=== PATIENT | female | born 1955 | race Caucasian/White ===

== ENCOUNTER → 2021-06-03 | Outpatient (CLI) | payer MEDICARE, OTHER ==
[~2021-06-03] MED LIST: ATROVENT NASAL SPRAY; BENTYL 20MG TAB20 MG PO; BROVANA15 MCG/2 M PO; BUDESONIDE INH; BUTALB-CAFF-AC1 EACH PO; CLARITIN10 MG PO; CLINDAMYCIN HC300 MG PO; CLONAZEPAM2 MG PO; FERROUS SULFAT325 MG PO; LEXAPRO20 MG PO; NORCO 7.5-3251 EACH PO; PROBIOTIC1 EAC2 PO; PROTONIX40 MG PO; REGLAN10 MG PO; SYNTHROID50 MCG PO; TRAZODONE HCL50 MG PO; TYLENOL PO; VASCEPA1 GM PO; VENTOLIN HFA 66.7 GM INH; ZOFRAN ODT 4 MG4 MG PO
== END ==
LOC: KOH-I 08:55
DX: R51.9 Headache, unspecified (principal); J32.8 Other chronic sinusitis
CPT/HCPCS: 70486